=== PATIENT | male | born 1980 | race Caucasian/White ===

== ENCOUNTER 2021-10-10 12:28 | Day surgery (SDC) | payer OTHER ==
[2021-10-10] MEDS ORDERED: LIDOCAINE HCL 2% 100 MG/5 ML IJ ONE (12:29)
[2021-10-10] MEDS ORDERED: DIPRIVAN 200 MG/20 ML IV ONE (15:11)
[2021-10-10] MEDS ORDERED: Lactated Ringers 1,000 ML IV ONE (15:46)
--- NOTE | 2021-10-10 16:26 | XRAY ---
Indication: Bilateral L4-S1 MBB. Intraoperative fluoroscopy provided for 8 seconds. Single digital spot image submitted for interpretation demonstrates posterior needle tips projecting over the expected left and right L4-S1 nerve roots. Correlate with intraoperative findings/report.
--- NOTE | 2021-10-10 16:48 | XRAY ---
8 seconds of fluoroscopy was used in surgery for a bilateral L4-S1 MBB.
== END 2021-10-10 15:32 | disposition home or self-care (01) ==
LOC: SDC-PAIN 12:28
PROVIDERS: ATTEND Psychiatry & Neurology Pain Medicine
DX: M47.816 Spondylosis without myelopathy or radiculopathy, lumbar region (principal); Z79.899 Other long term (current) drug therapy
CPT/HCPCS: 64493; 64494; 72020; 77002; J2704

== ENCOUNTER 2022-05-15 12:54 | Day surgery (SDC) | payer OTHER ==
[2022-05-15] MEDS ORDERED: Sodium Chloride 0.9(Preservative Free) 10 ML IJ ONE (12:55)
[2022-05-15] MEDS ORDERED: LIDOCAINE HCL 1% 50 MG/5 ML VL PF IJ ONE (12:55)
[2022-05-15] MEDS ORDERED: Depo-Medrol 40 MG/ML IM ONE (12:55)
[2022-05-15] MEDS ORDERED: DIPRIVAN 200 MG/20 ML IV ONE (15:07)
--- NOTE | 2022-05-15 16:21 | XRAY ---
Indication: Lumbar ELLY. Intraoperative fluoroscopy provided for 35 seconds. 2 digital spot image submitted for interpretation demonstrates posterior needle tip projecting posterior to L5 segment. Small amount of contrast injected for needle tip placement. Correlate with intraoperative findings/report.
[2022-05-15] MEDS ORDERED: Lactated Ringers 1,000 ML IV ONE (16:33)
--- NOTE | 2022-05-15 16:36 | XRAY ---
35 seconds of fluoroscopy was used in surgery for a lumbar ELLY.
== END 2022-05-15 15:40 | disposition home or self-care (01) ==
LOC: SDC-PAIN 12:54
PROVIDERS: ATTEND Psychiatry & Neurology Pain Medicine
DX: M54.16 Radiculopathy, lumbar region (principal); Z79.899 Other long term (current) drug therapy
CPT/HCPCS: 62323; 72100; 77003; J1030; J2001; J2704; Q9966

== ENCOUNTER 2022-10-16 11:38 | Day surgery (SDC) | payer OTHER ==
[2022-10-16] MEDS ORDERED: BUPIVACAINE 0.5% VIAL IJ ONE (11:39)
[2022-10-16] MEDS ORDERED: DIPRIVAN 200 MG/20 ML IV ONE (13:25)
--- NOTE | 2022-10-16 14:02 | XRAY ---
Indication: Bilateral L4-S1 MBB. Intraoperative fluoroscopy provided for 11 seconds. Single digital spot image submitted for interpretation demonstrates posterior needle tips projecting over the expected left and right L4-S1 nerve roots. Correlate with intraoperative findings/report.
--- NOTE | 2022-10-16 14:06 | XRAY ---
11 seconds of fluoroscopy was used in surgery for a bilateral L4-S1 MBB.
[2022-10-16] MEDS ORDERED: Lactated Ringers 1,000 ML IV ONE (15:25)
== END 2022-10-16 13:55 | disposition home or self-care (01) ==
LOC: SDC-PAIN 11:38
PROVIDERS: ATTEND Psychiatry & Neurology Pain Medicine
DX: M47.816 Spondylosis without myelopathy or radiculopathy, lumbar region (principal); Z79.899 Other long term (current) drug therapy
CPT/HCPCS: 64493; 64494; 72020; 77002; J2704

== ENCOUNTER 2022-11-27 13:08 | Day surgery (SDC) | payer OTHER ==
[2022-11-27] MEDS ORDERED: Depo-Medrol 40 MG/ML IM ONE (13:09)
[2022-11-27] MEDS ORDERED: BUPIVACAINE 0.5% VIAL IJ ONE (13:09)
[2022-11-27] MEDS ORDERED: LIDOCAINE HCL 1% 50 MG/5 ML VL PF IJ ONE (13:09)
[2022-11-27] MEDS ORDERED: DIPRIVAN 200 MG/20 ML IV ONE (14:56)
[2022-11-27] MEDS ORDERED: Versed 2 MG/2 ML Injection ONE (14:57)
[2022-11-27] MEDS ORDERED: Lactated Ringers 1,000 ML IV ONE (16:16)
--- NOTE | 2022-11-27 16:42 | XRAY ---
Indication: Left L4-S1 RFA. Intraoperative fluoroscopy provided for 25 seconds. 4 digital spot image submitted for interpretation demonstrates posterior needle tips projecting over the expected left L4-S1 nerve roots. Correlate with intraoperative findings/report.
--- NOTE | 2022-11-27 16:46 | XRAY ---
25 seconds of fluoroscopy was used in surgery for a left L4-S1 RFA.
== END 2022-11-27 15:30 | disposition home or self-care (01) ==
LOC: SDC-PAIN 13:08
PROVIDERS: ATTEND Psychiatry & Neurology Pain Medicine
DX: M47.816 Spondylosis without myelopathy or radiculopathy, lumbar region (principal); Z79.899 Other long term (current) drug therapy
CPT/HCPCS: 64635; 64636; 72100; 77002; J1030; J2001; J2250; J2704

== ENCOUNTER 2022-12-04 12:46 | Day surgery (SDC) | payer OTHER ==
[2022-12-04] MEDS ORDERED: BUPIVACAINE 0.5% VIAL IJ ONE (12:47)
[2022-12-04] MEDS ORDERED: LIDOCAINE HCL 1% 50 MG/5 ML VL PF IJ ONE (12:47)
[2022-12-04] MEDS ORDERED: Depo-Medrol 40 MG/ML IM ONE (12:47)
[2022-12-04] MEDS ORDERED: DIPRIVAN 200 MG/20 ML IV ONE ×2 (14:54→15:00)
[2022-12-04] MEDS ORDERED: Lactated Ringers 1,000 ML IV ONE (15:09)
--- NOTE | 2022-12-04 16:53 | XRAY ---
Indication: Right L4-S1 RFA. Intraoperative fluoroscopy provided for 18 seconds. 5 digital spot image submitted for interpretation demonstrates posterior needle tips projecting over the expected right L4-S1 nerve roots. Correlate with intraoperative findings/report.
--- NOTE | 2022-12-04 16:57 | XRAY ---
18 seconds of fluoroscopy was used in surgery for a right L4-S1 RFA.
== END 2022-12-04 15:24 | disposition home or self-care (01) ==
LOC: SDC-PAIN 12:46
PROVIDERS: ATTEND Psychiatry & Neurology Pain Medicine
DX: M47.816 Spondylosis without myelopathy or radiculopathy, lumbar region (principal); Z79.899 Other long term (current) drug therapy
CPT/HCPCS: 64635; 64636; 72100; 77002; J1030; J2001; J2704

== ENCOUNTER → 2023-03-12 | Day surgery (SDC) | payer OTHER ==
[~2023-03-12] MED LIST: Decadron 4 MG INJ IV ONE; Lactated Ringers 1,000 ML IV ONE; Sodium Chloride 0.9(Preservative Free) 10 ML IJ ONE; XYLOCAINE-MPF 1% 5ML SDV IJ ONE
--- NOTE | 2023-03-12 19:48 | XRAY ---
Indication: Cervical ELLY. Intraoperative fluoroscopy provided for 28 seconds. 4 digital spot image submitted for interpretation demonstrates needle tip projecting posterior to cervical thoracic junction. Small amount of contrast injected for needle tip placement. Correlate with intraoperative findings/report.
--- NOTE | 2023-03-12 19:53 | XRAY ---
28 seconds of fluoroscopy was used in surgery for a cervical ELLY.
== END ==
LOC: SDC-PAIN 15:02
PROVIDERS: ATTEND Psychiatry & Neurology Pain Medicine
DX: M54.12 Radiculopathy, cervical region (principal)
CPT/HCPCS: 62321; 72040; 77003; J1100; Q9966

== ENCOUNTER 2023-05-07 11:16 | Day surgery (SDC) | payer OTHER ==
[2023-05-07] MEDS ORDERED: LIDOCAINE HCL 2% 100 MG/5 ML IJ ONE (11:17)
[2023-05-07] MEDS ORDERED: Decadron 4 MG INJ IV ONE (11:17)
[2023-05-07] MEDS ORDERED: DIPRIVAN 200 MG/20 ML IV ONE (13:07)
[2023-05-07] MEDS ORDERED: Lactated Ringers 1,000 ML IV ONE (13:56)
--- NOTE | 2023-05-07 14:08 | XRAY ---
Indication: Right C2-C4 MBB. Intraoperative fluoroscopy provided for 13 seconds. 2 digital spot images submitted for interpretation demonstrates posterior needle tips projecting over the expected right C2-C4 nerve roots. Correlate with intraoperative findings/report.
--- NOTE | 2023-05-07 14:34 | XRAY ---
13 seconds of fluoroscopy was used in surgery for a right C2-C4 MBB.
== END 2023-05-07 13:31 | disposition home or self-care (01) ==
LOC: SDC-PAIN 11:16
PROVIDERS: ATTEND Psychiatry & Neurology Pain Medicine
DX: M47.812 Spondylosis without myelopathy or radiculopathy, cervical region (principal)
CPT/HCPCS: 64490; 64491; 72040; 77002; J1100; J2704

== ENCOUNTER 2023-06-11 12:23 | Day surgery (SDC) | payer OTHER ==
[2023-06-11] MEDS ORDERED: Decadron 4 MG INJ IV ONE (12:24)
[2023-06-11] MEDS ORDERED: BUPIVACAINE 0.5% VIAL IJ ONE (12:24)
[2023-06-11] MEDS ORDERED: DIPRIVAN 200 MG/20 ML IV ONE (14:18)
[2023-06-11] MEDS ORDERED: Lactated Ringers 1,000 ML IV ONE (14:21)
--- NOTE | 2023-06-11 16:31 | XRAY ---
Indication: Right C2-C4 MBB. Intraoperative fluoroscopy provided for 19 seconds. 2 digital spot image submitted for interpretation demonstrates posterior needle tips projecting over the expected right C2-C4 nerve roots. Correlate with intraoperative findings/report.
--- NOTE | 2023-06-11 16:46 | XRAY ---
19 seconds of fluoroscopy was used in surgery for a right C2-C4 MBB.
== END 2023-06-11 14:55 | disposition home or self-care (01) ==
LOC: SDC-PAIN 12:23
PROVIDERS: ATTEND Psychiatry & Neurology Pain Medicine
DX: M47.812 Spondylosis without myelopathy or radiculopathy, cervical region (principal)
CPT/HCPCS: 64490; 64491; 72040; 77002; J1100; J2704

== ENCOUNTER 2023-10-01 11:38 | Day surgery (SDC) | payer OTHER ==
[2023-10-01] MEDS ORDERED: Decadron 4 MG INJ IV ONE (11:39)
[2023-10-01] MEDS ORDERED: Xylocaine-Mpf 2% 5 Ml Vial IJ ONE (11:39)
[2023-10-01] MEDS ORDERED: DIPRIVAN 200 MG/20 ML IV ONE ×2 (13:40→13:50)
--- NOTE | 2023-10-01 15:28 | XRAY ---
Indication: Left C2-C4 MBB. Intraoperative fluoroscopy provided for 14 seconds. 3 digital spot image submitted for interpretation demonstrates posterior needle tips projecting over the expected left C2-C4 nerve roots. Correlate with intraoperative findings/report.
[2023-10-01] MEDS ORDERED: Lactated Ringers 1,000 ML IV ONE (15:29)
--- NOTE | 2023-10-01 16:50 | XRAY ---
14 seconds of fluoroscopy was used in surgery for a left C2-C4 MBB.
== END 2023-10-01 14:10 | disposition home or self-care (01) ==
LOC: SDC-PAIN 11:38
PROVIDERS: ATTEND Psychiatry & Neurology Pain Medicine
DX: M47.812 Spondylosis without myelopathy or radiculopathy, cervical region (principal)
CPT/HCPCS: 64490; 64491; 72040; 77002; J1100; J2704